=== PATIENT | female | born 1975 | race Caucasian/White ===

== ENCOUNTER → 2016-06-08 | Outpatient (CLI) | payer OTHER ==
--- NOTE | 2016-06-08 11:42 | MRI ---
EXAM DESCRIPTION: Brain w/oContrast CLINICAL HISTORY: R51 pain in back, right side of head. Dizziness. Worse mornings. COMPARISON: None TECHNIQUE: Multiplanar, multi sequence MR images of the head are obtained without IV gadolinium contrast using standard imaging protocol. FINDINGS: The midline structures are not displaced. Sulci are age appropriate. The lateral, third, and fourth ventricles are normal in size, shape, and anatomic positioning. Normal morrison-white differentiation is seen. Normal flow voids are seen in the major intracranial vessels including the dural venous sinuses. There is no evidence of mass, mass effect, hydrocephalus, or acute intracranial hemorrhage. No abnormal extra-axial fluid collections are seen. No abnormal increased signal is seen on FLAIR, T2, or diffusion-weighted sequences. Gradient echo images show no abnormal signal. The cerebellum is unremarkable. The pituitary is unremarkable. There is mild mucosal thickening and increased T2 signal in the visualized ethmoid, maxillary, and sphenoid sinuses. Tiny amount of fluid in the right mastoid air cells is seen. The visualized orbits are unremarkable. IMPRESSION: Unremarkable noncontrast MRI of the head. Mild subacute chronic sinusitis in the ethmoid, maxillary, and sphenoid sinuses. Electronically signed by: Waldemar Moreno MD 06/08/2016 11:40 AM CDT
== END | disposition home or self-care (01) ==
LOC: MRI 08:02
PROVIDERS: ATTEND Family Medicine
DX: R51 Headache (principal)

== ENCOUNTER → 2019-11-18 | Outpatient (CLI) | payer OTHER | LOC: LAB.O 14:22 | PROVIDERS: ATTEND Family Medicine | DX: M32.9 Systemic lupus erythematosus, unspecified (principal) ==